=== PATIENT | male | born 1990 | race African-American/Black ===

== ENCOUNTER 2016-03-01 13:54 | Emergency (ER) | payer OTHER ==
[~2016-03-01] VITALS: Ht 182.9 cm; Wt 143.1 kg
[2016-03-01 13:59] VITALS: Ht 182.9 cm; Wt 143.1 kg
[2016-03-01] MEDS ORDERED: WARF6TAB5 PO ×2 (16:21)
--- NOTE | 2016-03-01 16:39 | DIAGNOSTIC IMAGING REPORT ---
CHEST 2 VIEWS ROUTINE CLINICAL HISTORY: EVAL CHEST PAIN dyspnea COMPARISON STUDY: No previous studies for comparison. FINDINGS: Slight blunting right lateral costophrenic angle. Minimal atelectasis left base. Slight wedge deformity of L1 possibly old. Lungs are considered clear. IMPRESSION: Slight blunting right lateral costophrenic angle. Minimal atelectasis left base. Slight wedge deformity L1 possibly old although prior studies are not available for comparison Electronically signed by: Adam Rees M.D. 03/01/2016 4:37 PM
[2016-03-01 17:00] LABS: BASO % 0.2 %; BASO ABS # 0.02 K/uL (0-0.2); COMPLETE YES; EOS % 1.9 %; HEMATOCRIT 44.4 % (42-52); IG% 0.2 %; LYMPH % 26.6 %; LYMPH ABS # 2.35 K/uL (1.2-3.4); MEAN CELL VOLUME 84.3 fL (80-100); MEAN CORPUSCULAR HEMOGLOBIN 28.7 pg (25-34); MEAN PLATELET VOLUME 9.7 fL (7.4-10.4); MONO % 11.9 %; NEUT % 59.2 %; PLATELET COUNT 265 K/uL (130-400); RED BLOOD COUNT 5.27 M/uL (4.7-6.1); WHITE BLOOD COUNT 8.84 K/uL (4.8-10.8)
[2016-03-01 17:14] LABS: INR 3.5 (0.9-1.1); PARTIAL THROMBOPLASTIN RATIO 1.7; PROTHROMBIN TIME (PATIENT) 38.9 SECONDS (9.0-12.0)
[2016-03-01 17:17] LABS: ALT/SGPT 26 U/L (12-78); BLOOD UREA NITROGEN 11 mg/dl (7-18); BUN/CREATININE RATIO 10.2 (10-20); CALCIUM 9.2 mg/dl (8.5-10.1); CARBON DIOXIDE 27 mmol/L (21-32); CHLORIDE 104 mmol/L (98-107); GLUCOSE 84 mg/dl (70-99); POTASSIUM 3.9 mmol/L (3.5-5.1); SODIUM 141 mmol/L (136-145)
[2016-03-01 17:21] LABS: ALB/GLOB RATIO 0.9 (0.9-2); ALKALINE PHOSPHATASE 84 U/L (45-117); AST/SGOT 22 U/L (15-37)
[2016-03-01] MEDS ORDERED: SODIUM CHLORIDE 0.9% 1000ML 1,000 ML IV STA (17:50)
[2016-03-01] MEDS ORDERED: OPTIRAY 320 IV PRN (18:00)
--- NOTE | 2016-03-01 19:47 | DIAGNOSTIC IMAGING REPORT ---
CHEST CTA for PULMONARY ARTERIES CT DOSE: 2799.27 mGy.cm HISTORY: Chest pain dyspnea TECHNIQUE: Multiaxial CT images of the chest were performed following the intravenous administration of contrast to evaluate the pulmonary arteries. Maximal intensity projection images were also obtained. COMPARISON STUDY: None. FINDINGS: There is a normal caliber thoracic aorta with no evidence for dissection. There is no evidence for pulmonary embolus. No pleural effusions. No pneumothorax. The liver and spleen are unremarkable. No mediastinal or hilar lymphadenopathy. The central airways are patent. The lungs are clear. Minimal dependent bibasilar atelectasis IMPRESSION: No evidence for pulmonary embolus. Minimal dependent bibasilar atelectasis Electronically signed by: Adam Rees M.D. 03/01/2016 7:46 PM
--- NOTE | 2016-03-01 19:50 | DIAGNOSTIC IMAGING REPORT ---
ABDOMEN AND PELVIS CT WITHOUT CONTRAST CT DOSE: HISTORY: Flank pain LEFT FLANK PAIN TECHNIQUE: Multiaxial CT images of the abdomen and pelvis were performed without the use of intravenous and oral contrast according to the standard department stone protocol. COMPARISON STUDY: None. FINDINGS: Minimal dependent bibasilar atelectasis. Lung bases otherwise are clear. Liver spleen and pancreas are unremarkable. Kidneys are negative for hydronephrosis. A pattern is nonobstructive. Several small reactive mesenteric nodes. The appendix is normal. Bladder is midline. There is no free fluid within the pelvic cul-de-sac. IMPRESSION: Mild mesenteric adenitis. Otherwise negative study Electronically signed by: Adam Rees M.D. 03/01/2016 7:48 PM
--- NOTE | 2016-03-01 20:09 | EMERGENCY ROOM VISIT NOTE ---
History First contact with patient: 15:46 Chief Complaint: CHEST PAIN Stated Complaint: BLOOD CLOTS IN LUNG,SOB,CHEST PAIN Nursing Triage Summary: pt c/o pain left lung started 4 days ago. "feels sob intermittent a little bit". History of Present Illness Patient is a 25-year-old -[place] male who presents emergency Department with a by family for evaluation of left "lung pain" over the last several days. Patient has a history of DVT and PE. He is anticoagulated on Coumadin and follows with the coag clinic at [facility]. He states that for several weeks, they have had difficulty keeping his INR in a therapeutic range between 2.0 and 3.0. He is taking 12 mg Tuesday and Tuesday and Tuesday and 18 mg on Tuesdays and . He reports that he is compliant with his medication and his diet. They have not discussed using any other medications for anticoagulation at this point. Patient states that in the last 1-2 weeks, but worse in the last 4 days, he has noticed a deep , aching pain in his left back. Initially he thought it was muscular in nature. He became a bit more concerned and the last couple days as he states that it felt similar to when he had his prior PEs. He states it feels like he got punched in the back. It is difficult for him to get comfortable. He feels slightly short of breath. He denies any cough or hemoptysis. No anterior chest pain. He has not been sick with any cold or upper respiratory symptoms. He denies any dysuria, frequency, urgency or hematuria. The pain does not radiate into the abdomen or the flank. Patient presently rates his pain a 6/10. Review of Systems Review of systems as per HPI. All other systems reviewed were negative. 10 systems reviewed. Past Medical/Surgical History Medical Problems: (1) Hx of deep venous thrombosis (2) Hx of pulmonary embolus (3) On warfarin therapy The patient does not have any old records at our facility for review. Social History Smoking Status: Current Every Day Smoker Marital Status: in relationship Housing Status: lives with family Occupation Status: employed Current/Historical Medications Scheduled Warfarin Sod (Jantoven), 18 MG PO & Warfarin Sod (Jantoven), 12 MG PO 5XWK Allergies Coded Allergies: Shellfish (Verified Allergy, Mild, HIVES, 1/2/17) HAS NO PROBLEMS WITH IV CONTRAST Physical Exam Vital Signs Date Time Temp Pulse Resp B/P Pulse Ox O2 Delivery O2 Flow Rate FiO2 03/01/16 20:17 36.4 81 20 138/82 98 03/01/16 19:57 81 20 138/82 98 Room Air 03/01/16 17:51 84 20 145/88 98 Room Air 03/01/16 13:59 36.4 90 18 123/75 97 Room Air Physical Exam CONSTITUTIONAL: Patient is a well-appearing 25-year-old -[place] male who is awake and alert and in no acute distress. His vital signs are stable. He is not tachycardic, tachypneic or hypoxic. EYES: Pupils equal, round, reactive to light and accommodation. EOMs intact without nystagmus. Sclera are anicteric. ENT: Tympanic membranes intact, with normal landmarks. External canals are clear. Oral and nasopharynx are clear. Mucous membranes are moist, no lesions , tongue and gums appear normal. NECK: No bruits auscultated. Supple without lymphadenopathy. No thyromegaly. No meningeal signs. Full active range of motion without discomfort. CARDIOVASCULAR: Regular rate and rhythm, with normal S1 and S2, no murmur or gallop or rub is heard. No carotid bruits auscultated. No JVD. Peripheral pulses easy to palpable. RESPIRATORY: Breath sounds equal and clear to auscultation without wheezes, rales, or rhonchi heard. Full and equal chest expansion without accessory muscle use or retractions. GI: Bowel sounds are present. Abdomen is soft, nontender, nondistended. No organomegaly. No pulsatile masses. No guarding or rebound. No CVA tenderness. MUSCULOSKELETAL: Full range of motion of extremities x 4 with good strength. No cyanosis, edema, joint tenderness or swelling. No deformity. INTEGUMENTARY: No lesions or rash, normal skin turgor. NEUROLOGICAL: Alert, oriented, and cooperative. Cranial nerves, sensation and strength grossly intact. Pupils round, equal, and react to light, EOMs are full. LYMPH: No lymphadenopathy. Medical Decision & Procedures ER Provider Diagnostic Interpretation: CHEST 2 VIEWS ROUTINE CLINICAL HISTORY: EVAL CHEST PAIN dyspnea COMPARISON STUDY: No previous studies for comparison. FINDINGS: Slight blunting right lateral costophrenic angle. Minimal atelectasis left base. Slight wedge deformity of L1 possibly old. Lungs are considered clear. IMPRESSION: Slight blunting right lateral costophrenic angle. Minimal atelectasis left base. Slight wedge deformity L1 possibly old although prior studies are not available for comparison CHEST CTA for PULMONARY ARTERIES CT DOSE: 2799.27 mGy.cm HISTORY: Chest pain dyspnea TECHNIQUE: Multiaxial CT images of the chest were performed following the intravenous administration of contrast to evaluate the pulmonary arteries. Maximal intensity projection images were also obtained. COMPARISON STUDY: None. FINDINGS: There is a normal caliber thoracic aorta with no evidence for dissection. There is no evidence for pulmonary embolus. No pleural effusions. No pneumothorax. The liver and spleen are unremarkable. No mediastinal or hilar lymphadenopathy. The central airways are patent. The lungs are clear. Minimal dependent bibasilar atelectasis IMPRESSION: No evidence for pulmonary embolus. Minimal dependent bibasilar atelectasis ABDOMEN AND PELVIS CT WITHOUT CONTRAST CT DOSE: HISTORY: Flank pain LEFT FLANK PAIN TECHNIQUE: Multiaxial CT images of the abdomen and pelvis were performed without the use of intravenous and oral contrast according to the standard department stone protocol. COMPARISON STUDY: None. FINDINGS: Minimal dependent bibasilar atelectasis. Lung bases otherwise are clear. Liver spleen and pancreas are unremarkable. Kidneys are negative for hydronephrosis. A pattern is nonobstructive. Several small reactive mesenteric nodes. The appendix is normal. Bladder is midline. There is no free fluid within the pelvic cul-de-sac. IMPRESSION: Mild mesenteric adenitis. Otherwise negative study Laboratory Results 03/01/16 16:45 Red Blood Count 5.27, Mean Corpuscular Volume 84.3, Mean Corpuscular Hemoglobin 28.7, Mean Corpuscular Hemoglobin Concent 34.0, Mean Platelet Volume 9.7, Neutrophils (%) (Auto) 59.2, Lymphocytes (%) (Auto) 26.6, Monocytes (%) (Auto) 11.9, Eosinophils (%) (Auto) 1.9, Basophils (%) (Auto) 0.2, Neutrophils # (Auto ) 5.23, Lymphocytes # (Auto) 2.35, Monocytes # (Auto) 1.05, Eosinophils # (Auto ) 0.17, Basophils # (Auto) 0.02 03/01/16 16:45 Test 03/01/16 16:45 White Blood Count 8.84 K/uL (4.8-10.8) Red Blood Count 5.27 M/uL (4.7-6.1) Hemoglobin 15.1 g/dL (14.0-18.0) Hematocrit 44.4 % (42-52) Mean Corpuscular Volume 84.3 fL (80-100) Mean Corpuscular Hemoglobin 28.7 pg (25-34) Mean Corpuscular Hemoglobin Concent 34.0 g/dl (32-36) Platelet Count 265 K/uL (130-400) Mean Platelet Volume 9.7 fL (7.4-10.4) Neutrophils (%) (Auto) 59.2 % Lymphocytes (%) (Auto) 26.6 % Monocytes (%) (Auto) 11.9 % Eosinophils (%) (Auto) 1.9 % Basophils (%) (Auto) 0.2 % Neutrophils # (Auto) 5.23 K/uL (1.4-6.5) Lymphocytes # (Auto) 2.35 K/uL (1.2-3.4) Monocytes # (Auto) 1.05 K/uL (0.11-0.59) Eosinophils # (Auto) 0.17 K/uL (0-0.5) Basophils # (Auto) 0.02 K/uL (0-0.2) RDW Standard Deviation 47.7 fL (36.4-46.3) RDW Coefficient of Variation 15.6 % (11.5-14.5) Immature Granulocyte % (Auto) 0.2 % Immature Granulocyte # (Auto) 0.02 K/uL (0.00-0.02) Prothrombin Time 38.9 SECONDS (9.0-12.0) Prothromb Time International Ratio 3.5 (0.9-1.1) Activated Partial Thromboplast Time 45.1 SECONDS (21.0-31.0) Partial Thromboplastin Ratio 1.7 Anion Gap 10.0 mmol/L (3-11) Est Creatinine Clear Calc Drug Dose 148.1 ml/min Estimated GFR () 106.1 Estimated GFR (Non- 91.5 BUN/Creatinine Ratio 10.2 (10-20) Calcium Level 9.2 mg/dl (8.5-10.1) Total Bilirubin 0.3 mg/dl (0.2-1) Aspartate Amino Transf (AST/SGOT) 22 U/L (15-37) Alanine Aminotransferase (ALT/SGPT) 26 U/L (12-78) Alkaline Phosphatase 84 U/L (45-117) Troponin I < 0.015 ng/ml (0-0.045) Total Protein 8.2 gm/dl (6.4-8.2) Albumin 3.9 gm/dl (3.4-5.0) Globulin 4.3 gm/dl (2.5-4.0) Albumin/Globulin Ratio 0.9 (0.9-2) Medications Administered Medications (Trade) Dose Ordered Sig/Jeannette Route Start Time Stop Time Status Last Admin Dose Admin Sodium Chloride (Nss 1000ml) 1,000 ml @ 999 mls/hr Q1H1M STAT IV 03/01/16 17:50 03/01/16 18:50 DC 03/01/16 18:36 999 MLS/HR ECG Indication: back/shoulder pain, SOB/dyspnea Rate (beats per minute): 83 Rhythm: normal sinus Findings: no acute ischemic change Comparison ECG Date: no prior available ED Course The patient was seen and evaluated as above. He has no old records available for review. IV access was obtained. He was hydrated with normal saline solution. EKG was performed and was as noted above. Laboratory studies were collected including CBC with differential, PT-INR, CMP and troponin. Chest x- ray was obtained and was unremarkable. Urine was dipped, and was not grossly bloody, but noted trace occult blood. Laboratory studies revealed a normal white count. H&H is 15.1 and 44.4. Platelet count is 255,000. INR is actually supratherapeutic at 3.5. Electrolytes, renal function and liver functions are normal. Troponin is negative 1 with symptoms greater than 24 hours. Given the location and the patient's pain in the left back/flank area, I did elect to perform CT of the chest, abdomen and pelvis, to evaluate for PE or pulmonary infarct, or other intra-abdominal pathology including kidney stone or retroperitoneal bleed. CAT scan was unremarkable. There was no evidence for pulmonary emboli. No pneumothorax or pleural effusion. No pathologic lymphadenopathy. Mild mesenteric adenitis was noted but otherwise there was no evidence for hydronephrosis. Abdomen was nonobstructive. Appendix was normal. All laboratory and diagnostic imaging studies were reviewed with attending physician. ED results were discussed with the patient at length. Differential diagnoses entertained included PE, pleurisy, pneumothorax, pneumonia, muscular pain, renal colic, retroperitoneal bleed, among others. He reports that they have had difficulty getting his INR in therapeutic range at his coag clinic, however his INR is actually slightly supratherapeutic today. He does not have any evidence for bleeding on exam. He was encouraged to continue taking his Coumadin as prescribed, and to call the coag clinic for follow-up. He is encouraged to rest, use Tylenol and heat for pain and to follow-up with his PCP for recheck. The patient was discharged home in good condition. He rated his pain a 0/10 at discharge. Medical Decision See ED Course. Impression Primary Impression: Left flank pain Departure Information Referrals Juliana Canales, (PCP) Patient Instructions A Signature Page, My [facility] [employer] Additional Instructions Your INR today was 3.5. Continue current warfarin dosing. Call the [facility] and follow-up with them as advised. Acetaminophen(Tylenol) may be used for fever or pain. Use 1000mg every six hours as needed. Avoid using more than 3000mg in a 24 hour period. This medication can be taken if you need to drive, work, or perform activities which may be dangerous when taking narcotic pain medication. Rest and avoid heavy lifting until your symptoms resolve and then gradually return to full activity. A good rule of thumb is if it hurts your back to perform a certain activity, then it should be avoided until you are healthy again. A heating pad, warm compresses, or a hot shower may help with tight muscles and can be done several times a day as needed. Continue current medications. Return to the ER immediately for any numbness, tingling, severe pain, loss of control of your bowels or bladder, inability to walk, or as needed. Follow up with your primary care physician within 3-5 days for a recheck of your current condition.
[2016-03-01 20:17] VITALS: BP 138/82; PULSE 81; TEMP 36.4; O2SAT 98
== END 2016-03-01 20:19 | disposition home or self-care (01) ==
LOC: C.EDB 13:58
DX: R10.9 Unspecified abdominal pain (principal); F17.210 Nicotine dependence, cigarettes, uncomplicated; Z79.01 Long term (current) use of anticoagulants; Z86.718 Personal history of other venous thrombosis and embolism; Z86.711 Personal history of pulmonary embolism